=== PATIENT | female | born 1965 | race Two or more races ===

== ENCOUNTER 2018-03-22 20:45 | Emergency (ER) | payer MEDICAID ==
[~2018-03-22] VITALS: Ht 152.4 cm; Wt 64.4 kg
[2018-03-22 20:48] VITALS: BP 118/75
== END 2018-03-22 22:14 | disposition home or self-care (01) ==
LOC: ER 20:47
DX: S90.122A Contusion of left lesser toe(s) without damage to nail, initial encounter (principal); F10.10 Alcohol abuse, uncomplicated; X50.9XXA Other and unspecified overexertion or strenuous movements or postures, initial encounter; Y93.89 Activity, other specified; Y92.89 Other specified places as the place of occurrence of the external cause; Y99.8 Other external cause status
CPT/HCPCS: 73660; 99284; A4606; Z7610

== ENCOUNTER 2019-12-05 10:15 | Emergency (ER) | payer MEDICAID ==
[~2019-12-05] VITALS: Ht 152.4 cm; Wt 68.9 kg
[2019-12-05 10:27] VITALS: BP 129/72
--- NOTE | 2019-12-05 10:30 | NUR ---
c/o cough x3 days with fever on&off, back pain and headache.
== END 2019-12-05 12:22 | disposition home or self-care (01) ==
LOC: ER 10:17
DX: J06.9 Acute upper respiratory infection, unspecified (principal); F10.10 Alcohol abuse, uncomplicated; Y90.9 Presence of alcohol in blood, level not specified; Z60.2 Problems related to living alone
CPT/HCPCS: 71045-TC

== ENCOUNTER 2025-03-14 10:50 | Emergency (ER) | payer MEDICAID ==
[~2025-03-14] VITALS: Ht 152.4 cm; Wt 63.5 kg
[2025-03-14] MEDS ORDERED: KETOROLAC TROMETHAMINE 15 MG/ML VIAL ONE (11:28)
[2025-03-14] MEDS ORDERED: ONDANSETRON HCL/PF 4 MG/2 ML VIAL ONE (11:28)
[2025-03-14] MEDS ORDERED: PANTOPRAZOLE 40 MG VIAL ONE (11:28)
[2025-03-14] MEDS: IV NS 0.9% 1,000 ML BAG IV ONE (11:32)
[2025-03-14 11:36] LABS: BASOPHILS # (AUTO) 0.1 K/uL (0.0-0.2); EOSINOPHILS # (AUTO) 0.1 K/uL (0.0-0.7); MEAN CORPUSCULAR VOLUME 87 fL (82-100); NEUTROPHILS # (AUTO) 5.7 K/uL (1.8-8.9); RED CELL DISTRIBUTION WIDTH 13.2 % (11.5-15.0)
[2025-03-14 11:38] LABS: BASOPHILS % (AUTO) 0.7 % (0.0-2.0); EOSINOPHILS % (AUTO) 0.8 % (0.0-6.0); HEMATOCRIT 49 % (33-45); HEMOGLOBIN 16.9 g/dL (11.5-14.8); LYMPHOCYTES # (AUTO) 1.2 K/uL (0.8-4.8); LYMPHOCYTES % (AUTO) 16.4 % (20.0-44.0); MEAN CORPUSCULAR HEMOGLOBIN 30 PG (26.0-33.0); MEAN CORPUSCULAR HGB CONC 35 g/dl (31.0-36.0); MONOCYTES # (AUTO) 0.5 K/uL (0.1-1.30); MONOCYTES % (AUTO) 6.3 % (2.0-12.0); NEUTROPHILS % (AUTO) 75.8 % (43.0-81.0); PLATELET COUNT (AUTO) 217 K/uL (150-450); RED BLOOD CELL COUNT(AUTO) 5.62 MIL/uL (4.0-5.2); WHITE BLOOD COUNT (AUTO) 7.5 K/uL (4.3-11.0)
[2025-03-14 11:42] LABS: CREATININE 0.7 mg/dL (0.6-1.3); POTASSIUM 3.8 mmol/L (3.5-5.1)
[2025-03-14 11:47] LABS: ALBUMIN 3.6 g/dL (3.4-5.0); BILIRUBIN,DIRECT 0.2 mg/dL (0.0-0.2); BILIRUBIN,TOTAL 0.7 mg/dL (0.2-1.0); TOTAL PROTEIN, SERUM 9.3 g/dL (6.4-8.2)
[2025-03-14] MEDS: KETOROLAC TROMETHAMINE 15 MG/ML VIAL IV ONE (11:51)
[2025-03-14] MEDS: PANTOPRAZOLE 40 MG VIAL IV ONE (11:51)
[2025-03-14] MEDS: ONDANSETRON HCL/PF 4 MG/2 ML VIAL IVP ONE (11:52)
[2025-03-14] MEDS ORDERED: PANT40TA2 PO (14:12)
[2025-03-14] MEDS ORDERED: IBUP-1490 PO (14:12)
[2025-03-14 14:25] VITALS: BP 116/72; TEMP 99.1; O2SAT 97
== END 2025-03-14 14:25 | disposition home or self-care (01) ==
LOC: ER 10:53
DX: R10.13 Epigastric pain (principal); B34.9 Viral infection, unspecified; E11.9 Type 2 diabetes mellitus without complications; Z60.2 Problems related to living alone
CPT/HCPCS: 99285; 96374; 96375; 96361; 85025; 80048; 83690; 80076; 36415; J1885; J2405; J7030; J2470